=== PATIENT | male | born 1995 | race Caucasian/White ===

== ENCOUNTER → 2016-12-02 | Outpatient (CLI) | payer OTHER ==
--- NOTE | 2016-12-02 11:27 | REP ---
MAXILLOFACIAL CT WITHOUT CONTRAST: HISTORY: Septal deviation. Bilateral Toño cells are present. Minimal mucosal thickening is present in the maxillary sinuses. The remaining sinuses are clear. The ostiomeatal units are patent. The middle and inferior nasal turbinates are partially paradoxical. There is neil bullosa of the left middle nasal turbinate. There is mild deviation of the nasal septum to the right. The cribriform plate, medial hubbard of the orbits and optic canals are intact. The carotid canals form a segment of the posterolateral hubbard of the sphenoid sinus. The sphenoid sinus septa insert into the internal carotid canal hubbard. IMPRESSION: Sinus mucosal thickening as described above. Signed by Fabricio Ro MD 12/02/2016 11:45 A
== END ==
LOC: M RAD 09:50
PROVIDERS: ATTEND Physician Assistant
DX: R06.00 Dyspnea, unspecified (principal)